=== PATIENT | male | born 1950 | race Caucasian/White ===

== ENCOUNTER 2016-12-20 13:52 | Emergency (ER) | payer OTHER, BC ==
[~2016-12-20] VITALS: Ht 165.1 cm; Wt 75.6 kg
[2016-12-20 15:38] LABS: ADD MIUA? YES; BILIRUBIN NEGATIVE; BLOOD SMALL; COLOR YELLOW ((YELLOW)); GLUCOSE (STRIP) NEGATIVE; KETONES NEGATIVE; LEUKOCYTES NEGATIVE; NITRITE NEGATIVE; PROTEIN (STRIP) NEGATIVE; UROBILINOGEN 0.2 MG/DL (0.2-1.0)
[2016-12-20 15:53] LABS: EOSINOPHIL (%) 0.2 % (0-5); HEMATOCRIT 39.8 % (38.0-50.0); IMMATURE GRANULOCYTE (%) 0.6 % (0.0-0.7); IMMATURE GRANULOCYTE COUNT 0.1 K/uL; INSTRUMENT ABS NEUTROPHIL CT 10.6 K/uL; LYMPHOCYTE COUNT 1.2 K/uL (1.0-2.8); MCH 29.3 PG (29.0-34.0); MCHC 33.7 G/DL (30.0-36.0); MCV 86.9 FL (86-99); MEAN PLAT.VOLUME 10.4 uM^3 (9.0-12.4); MONOCYTE (%) 7.3 % (3-12); MONOCYTE COUNT 0.9 K/uL (0-0.8); NEUTROPHIL (%) 82.5 % (45-76); NEUTROPHIL COUNT 10.6 K/uL (1.8-6.4); PLATELET COUNT 219 K/uL (156-360); RBC DIS.WIDTH-CV 12.5 % (11.8-14.6); RBC DIS.WIDTH-SD 39.8 % (39-53); RED BLOOD COUNT 4.58 M/uL (4.00-5.50); WHITE BLOOD COUNT 12.8 K/uL (4.1-10.2)
[2016-12-20 16:05] LABS: CHLORIDE 102 mEq/L (99-109); POTASSIUM 3.3 mEq/L (3.7-5.4); SODIUM 139 mEq/L (136-147)
[2016-12-20 16:07] LABS: GLUCOSE 121 mg/dL (70-99)
[2016-12-20 16:08] LABS: ANION GAP 10 MEQ/L (2-14)
[2016-12-20 16:11] LABS: GFR ESTIMATE (CALCULATED) 30 mL/min/
[2016-12-20 16:12] LABS: UREA NITROGEN (BUN) 31 mg/dL (9-23)
[2016-12-20 16:18] LABS: BACTERIA RARE /HPF; EPITHELIAL CELLS RARE /HPF; MUCUS TRACE /LPF; UCUL ADDED? NO; WHITE BLOOD CELLS 0-5 /HPF (0-5)
[2016-12-20] MEDS ORDERED: FLOMAX0.4 MG PO (18:19)
[2016-12-20] MEDS ORDERED: ZOFRAN ODT4 MG PO (18:19)
[2016-12-20] MEDS ORDERED: PERCOCET 5/31 TABLET PO (18:19)
[2016-12-20 18:56] VITALS: BP 139/87
== END 2016-12-20 18:59 | disposition home or self-care (01) ==
LOC: EME 13:52
PROVIDERS: Physician Assistant
DX: N20.0 Calculus of kidney (principal); K21.9 Gastro-esophageal reflux disease without esophagitis; E78.5 Hyperlipidemia, unspecified; I10 Essential (primary) hypertension; Z85.828 Personal history of other malignant neoplasm of skin
CPT/HCPCS: 74176; 80048; 81003; 85025; 99281; 99283